=== PATIENT | female | born 1995 | race African-American/Black ===

== ENCOUNTER 2020-02-28 08:04 | Outpatient (CLI) | payer BC, SELFPAY ==
[2020-02-28 08:21] LABS: Hematocrit 39.7 % (37.0-47.0); Hemoglobin 12.7 g/dL (12.0-15.0)
== END 2020-02-28 08:05 | disposition home or self-care (01) ==
LOC: ANHLAB 08:06
PROVIDERS: Visit Provider Student in an Organized Health Care Education/Training Program
DX: R87.619 Unspecified abnormal cytological findings in specimens from cervix uteri (principal)
CPT/HCPCS: 36415; 85014; 85018

== ENCOUNTER 2020-02-29 00:01 | Outpatient (CLI) | payer BC, SELFPAY ==
[2020-02-29 19:45] LABS: SARS-CoV-2 RNA PCR Negative
== END 2020-02-29 00:02 | disposition home or self-care (01) ==
LOC: ANHCOVIDDT 00:02
PROVIDERS: Visit Provider Student in an Organized Health Care Education/Training Program
DX: Z01.818 Encounter for other preprocedural examination (principal); Z11.59 Encounter for screening for other viral diseases
CPT/HCPCS: 87635; C9803; U0003

== ENCOUNTER 2020-03-02 03:44 | Day surgery (SDC) | payer BC, SELFPAY ==
[2020-02-17 15:13] VITALS: BMI 46.7
--- NOTE | 2020-03-02 07:38 | PM.IMHP ---
H&P: HPI History of Present Illness Chief complaint: Abnormal PAP Narrative: Ana Maria Panda is a 24 year old female who presents for LEEP for CINDY 2 on cervical biopsy. Pt initially was found to have LSIL pap with +HPV. She underwent colposcopy and biopsy results returned CIN2. Pt denies tobacco use. Attempt was made to perform in office procedure but patient was unable to relax enough to tolerate the exam due to anxiety. Review of Systems Cardiovascular: Cardiovascular: Denies chest pain, Denies leg edema, Denies palpitations, Denies dyspnea and Denies dyspnea on exertion Respiratory: Respiratory: Denies cough, Denies dyspnea and Denies dyspnea on exertion Gastrointestinal: Gastrointestinal: Denies abdominal pain, Denies constipation, Denies diarrhea, Denies nausea and Denies vomiting Genitourinary: Genitourinary: Denies hematuria, Denies urinary frequency, Denies dysuria, Denies pelvic pain, Denies urinary incontinence and Denies vaginal discharge Neurologic: Reports system reviewed and no additional complaints, except as documented Psychiatric: Psychiatric: Reports no additional psychiatric complaints Endocrine: Endocrine: Denies palpitations [facility] Family History Family History (Updated 06/16/17 @ 08:31 by DOCTOR UNKNOWN) Other Diabetes mellitus Hypertension Social History Social History Smoking status: Never smoker Alcohol intake: current Gender identity (if verbalized by the patient): Female Meds Home Medications and Allergies Home Medications Medication Instructions Recorded Confirmed Type bupropion HCl 100 mg PO BID 02/17/20 02/17/20 History drospirenone-ethinyl estradiol 1 tablet PO QPM 02/17/20 02/17/20 History [Myra] duloxetine 60 mg PO DAILY 02/17/20 02/17/20 History Allergies Allergy/AdvReac Type Severity Reaction Status Date / Time No Known Allergies Allergy Verified 02/17/20 15:13 Exam Const: General: no acute distress Eyes: EOM: EOMs intact bilaterally Neck: Neck: supple Thyroid: thyroid normal Chest: Breast/axilla inspection: normal inspection of the breasts Breast/axilla palpation: normal palpation of the breasts, normal palpation of the axillae and no axillary lymphadenopathy Resp: Effort & Inspection: normal respiratory effort Auscultation: clear to auscultation bilaterally Cardio: Rate: regular rate Rhythm: regular rhythm GI: Inspection: non-distended GI Palp: Yes Soft to palpation, No Tenderness to palpation present (GI) and No Guarding due to palpation present (GI) Auscultation: normal bowel sounds : General: No bladder normal to palpation External Female Exam: normal external appearance Speculum Exam - Vagina: normal vaginal discharge and No vaginal bleeding Speculum Exam - Cervix: nontender Bimanual exam- vagina & uterus: No bladder normal to palpation and No Cervical tenderness present OB/external & speculum: No vaginal bleeding Skin: General skin exam: normal color and no rashes or lesions noted Neuro: Cognition (Neuro): normal cognition Speech: normal speech Extrem: General: normal to inspection and no edema Psych: Mental Status: mental status grossly normal Affect: normal affect Assessment and Plan Assessment and plan (1) CINDY II (cervical intraepithelial neoplasia II): Code(s): N87.1 - Moderate cervical dysplasia Status: Acute Assessment and Plan: initial pap with LSIL +HPV colposcopy and cervical bx returned CINDY 2 plan for excisional biopsy via LEEP
[2020-03-02] MEDS: LACTATED RINGERS 1,000 ML 30 ML IV CONT (10:30)
[2020-03-02 10:35] VITALS: BP 128/90; PULSE 107; RESP 24; TEMP 36.6; O2SAT 100
--- NOTE | 2020-03-02 11:23 | P.PNAN_ITS ---
Anes - Initial Pre Proc Eval Procedure: Operation Date: 03/02/20 12:00 Proposed Procedures p Loop Electrical Excision Procedure - Musa Snyder MD Date/Time: 03/02/20 11:23 Surgeon: Musa Snyder MD Pre Op Diagnosis: Abnormal PAP Patient Data Age: 24 Gender: F Height: 5 ft 6 in Weight: 129.1 kg Last Vital Signs Temp 36.6 C 03/02/20 10:35 Pulse 107 H 03/02/20 10:35 Resp 24 H 03/02/20 10:35 BP 128/90 03/02/20 10:35 Pulse Ox 100 03/02/20 10:35 Allergies Allergy/AdvReac Type Severity Reaction Status Date / Time No Known Allergies Allergy Verified 02/17/20 15:13 Home Medications Medication Instructions Recorded Confirmed Type drospirenone-ethinyl estradiol 1 tablet PO QPM 02/17/20 03/02/20 History [Myra] duloxetine 60 mg PO DAILY 02/17/20 03/02/20 History bupropion HCl 150 mg PO BID 03/02/20 03/02/20 History quetiapine 25 mg PO HS 03/02/20 03/02/20 History trazodone 50 mg PO BID 03/02/20 03/02/20 History Patient hx anesthesia problems: none Family hx anesthesia problems: none [facility] Past Medical History Medical History (Updated 03/02/20 @ 11:24 by Damaso Eller MD) Anxiety Depression Family History Family History Other Diabetes mellitus Hypertension Social History Social History Smoking status: Never smoker Alcohol intake: current Gender identity (if verbalized by the patient): Female Anes - Eval Final PreProcedure Day of Procedure 03/02/20 11:23 Patient weight: morbidly obese Heart: regular rate and rhythm Lungs: clear to auscultation Airway: Mallampati scale class II Neurological: alert and oriented Last oral intake: >/= 8 hours ASA classification: III Emergent: no Anesthetic plan: proceed Anesthesia type and monitoring: general GIVS and standard monitoring Informed Consent: The patient's anesthetic plan and its attendant risks and benefits were discussed with the patient/family/POA. Questions were solicited and answers provided to the satisfaction of the patient/family/POA.
[2020-03-02] MEDS: KETOROLAC 30 MG/ML VIAL (*BKC) IV PUSH (12:15)
[2020-03-02] MEDS: LIDO 1%/EPINEPHRINE 1:100,000 20 ML VIAL 10 ML INFILTRATE (12:26)
--- NOTE | 2020-03-02 12:29 | PM.PROC ---
Procedure Note - Detailed Date of procedure: 03/02/20 Pre-op diagnosis: Abnormal PAP Procedure performed: LEEP endocervical curettage Description of procedure: After adequate anesthesia was established, the patient was placed in dorsal lithotomy position in yellow fin sitrrups. Insulated speculum was placed to visualize the cervix. Paracervical block was performed with 1% lidocaine with epinepherine. Lugols solution was then applied with good definition of the transformation zone. A 25 mm loop was used to excise the transformation zone. A total of one passes were made. The cervical specimen came out in two pieces, one anterior cervix and one posterior cervix. A single stitch was placed a 12 o'clock on the cervical specimen. An endocervical curettage was performed. Hemostasis was obtained with ball cautery. Power settings cut 35 abbasi, coagulation 35 abbasi. Patient tolerated the procedure well. All sponge and instrument counts were correct. The patient was transferred to PACU without complications. Anesthesia: GLMA Surgeon: Musa Snyder MD Estimated blood loss (mL): 10 Drains: No Packing: No Pathology: yes (endocervical curettage, cervical biopsy) Complications: No immediate complications Condition: stable Disposition: PACU
[2020-03-02 12:32] VITALS: BP 135/81; PULSE 98; RESP 18; O2SAT 99
[2020-03-02 13:00] VITALS: BP 133/88; PULSE 92; RESP 16
[2020-03-02 13:20] VITALS: BP 135/74; PULSE 92; RESP 16
== END 2020-03-02 13:30 | disposition home or self-care (01) ==
PROVIDERS: Visit Provider Student in an Organized Health Care Education/Training Program
PROC: 0UBC7ZZ Excision of Cervix, Via Natural or Artificial Opening (ICD-10-PCS; CPT 57522; principal; 2020-03-02 12:00)
DX: D06.7 Carcinoma in situ of other parts of cervix (principal); F41.8 Other specified anxiety disorders; E66.01 Morbid (severe) obesity due to excess calories; Z68.42 Body mass index [BMI] 45.0-49.9, adult
CPT/HCPCS: 57522; 88305; A9270; J1885; J2250; J2704; J3010; J7120

== ENCOUNTER 2021-12-21 13:15 | Emergency (ER) | payer OTHER, SELFPAY ==
--- NOTE | ~2021-12-21 | XR_ITS ---
EXAMINATION: XR foot LT min 3V DATE: 12/21/2021 13:35 INDICATION: Great toe injury and pain. TECHNIQUE: 4 views of left foot were obtained. COMPARISON: None. FINDINGS: There is an avulsion fracture of medial base of first proximal phalanx with 3 mm distractio n. Joint spaces are normal. There is an enthesophyte at plantar aspect of calcaneal tuberosity. IMPRESSION: 1. Avulsion fracture of medial base of first proximal phalanx. Reviewed, dictated and finalized at location B.
--- NOTE | 2021-12-21 13:17 | ED.LOWEXIN ---
HPI - Extremity Injury (Lower) General Chief Complaint: Extremity Injury, Lower Stated Complaint: left foot injury Time Seen by Provider: 12/21/21 13:17 Source: patient and RN notes reviewed History of Present Illness HPI Narrative: Patient is a 26-year-old female who presents the urgent care with complaints of left foot pain, swelling and bruising. Patient states that a couple weeks ago she slipped in the shower and initially was having some resolution of the pain and swelling. Patient states that over the last few days it is became more swollen and had increase in pain with weightbearing activities. Patient states that she has been keeping it elevated with ice and taking Tylenol. No other acute complaints. No acute distress noted. Patient aware of the plan of care. Some parts of this dictation were generated by voice recognition software and may contain typographical and/or grammatical inaccuracies. Related Data Home Medications Medication Instructions Recorded Confirmed drospirenone-ethinyl estradiol 1 tablet PO QPM 02/17/20 03/02/20 [Myra] bupropion HCl 150 mg PO BID 03/02/20 03/02/20 quetiapine 25 mg PO HS 03/02/20 03/02/20 clonidine HCl 0.1 mg PO BID PRN 12/21/21 12/21/21 venlafaxine 75 mg PO HS 12/21/21 12/21/21 Allergies Allergy/AdvReac Type Severity Reaction Status Date / Time No Known Allergies Allergy Verified 02/17/20 15:13 Review of Systems Review of Systems: CONSTITUTIONAL: Denies fever, chills, or sweats. EYES: Denies visual changes, redness, or discharge. ENT: Denies rhinorrhea, congestion, sore throat, or otalgia. CARDIOVASCULAR: Denies chest pain, palpitations, or edema. RESPIRATORY: Denies cough or dyspnea. GASTROINTESTINAL: Denies abdominal pain, nausea, vomiting, or diarrhea. GENITOURINARY: Denies dysuria or hematuria. SKIN: Denies rash or itching. MUSCULOSKELETAL: Reports of left foot pain and swelling NEUROLOGIC: Denies headache, numbness, or weakness. All other systems reviewed are negative, except as documented in HPI. REPLACED BY [facility] Past Medical History Medical History (Updated 12/21/21 @ 14:01 by RAFAEL Jewell) Anxiety Depression Family History Family History Other Diabetes mellitus Hypertension Social History Social History Smoking status: Never smoker Alcohol intake: current Gender identity (if verbalized by the patient): Female Comments At the time of my signature, I reviewed and agree with the nursing past medical, surgical, social, and family history. There is no relevant family history pertinent to the patient complaint. Exam Narrative: GENERAL: This is a well-nourished, well-developed patient, in no apparent distress. HEAD: normocephalic, atraumatic. EYES: PERRL. Sclera clear/white. Vision is grossly intact. EARS: External ears normal NOSE: External nose normal with no obvious nasal discharge, nares without redness, no rhinorrhea. THROAT: Mucous membranes moist NECK: Neck supple SKIN: warm, intact with no suspicious lesions or rash, good texture and turgor. NEURO: awake, alert, and oriented to person, place and time. There were no obvious focal neurologic abnormalities. EXTREMITIES: Moderate ecchymosis and edema noted to the left foot extending from the proximal first phalanx to the mid dorsal aspect. Positive strong left pedal pulse with capillary refill less than 2 seconds. Course Course Level of Care: Express Care Visit Vital Signs Vital signs: Vital Signs Temperature 98 F 12/21/21 13:23 Pulse Rate 114 H 12/21/21 13:23 Respiratory Rate 16 12/21/21 13:23 Blood Pressure 157/60 H 12/21/21 13:23 Pulse Oximetry 100 12/21/21 13:23 Temperature 98 F 12/21/21 13:29 Pulse Rate 114 H 12/21/21 13:29 Respiratory Rate 16 12/21/21 13:29 Blood Pressure 157/60 H 12/21/21 13:29 Pulse Oximetry 100 12/21/21 13:29
[2021-12-21 13:23] VITALS: BP 157/60; PULSE 114; RESP 16; TEMP 36.6; O2SAT 100
[2021-12-21 13:29] VITALS: BP 157/60; PULSE 114; RESP 16; TEMP 36.6; O2SAT 100
--- NOTE | 2021-12-21 13:36 | PC.NURSE ---
PT DECLINED ICE FOR COMFORT
== END 2021-12-21 14:08 | disposition home or self-care (01) ==
PROVIDERS: Emergency Provider Nurse Practitioner Family
DX: S92.412A Displaced fracture of proximal phalanx of left great toe, initial encounter for closed fracture (principal); W18.2XXA Fall in (into) shower or empty bathtub, initial encounter; F41.9 Anxiety disorder, unspecified; F32.A Depression, unspecified
CPT/HCPCS: 73630; 99214; G0463

== ENCOUNTER 2023-01-26 11:28 | Emergency (ER) | payer OTHER, SELFPAY ==
[2023-01-26 11:40] VITALS: BP 112/74; PULSE 95; RESP 14; TEMP 36.6; O2SAT 98
--- NOTE | 2023-01-26 12:05 | ED.GENADULT ---
HPI - General Adult General Chief complaint: Skin/Abscess/Foreign Body Stated complaint: Rash Source: patient Mode of arrival: ambulatory Limitations: no limitations History of Present Illness HPI narrative: patient presents for evaluation of a rash to her neck and bilateral upper extremities. She he is 13 days ago she developed a painful rash to the right side of neck. She had a scheduled upper endoscopy 9 days ago. The anesthesiologist would not move for the procedure as they thought was shingles. She was given prescription for Valtrex which she started. She then developed pruritic rash to bilateral upper extremities. She thought this was an allergic reaction to the Valtrex. Consequently she stop taking the medication and reports a slight improvement in the rash since that time. the rash to her neck is painful but not pruritic. The rash to her upper extremities is pruritic but not painful. She applied some calamine and topical benadryl. She does not know whether she was exposed to poison [place]/oak. Related Data Home Medications Medication Instructions Recorded Confirmed drospirenone 3 mg-ethinyl 1 tablet PO QPM 02/17/20 01/26/23 estradiol 0.03 mg tablet (Myra) venlafaxine 75 mg capsule,extended 150 mg PO HS 12/21/21 01/26/23 release 24 hr Concerta 01/26/23 trazodone 01/26/23 Allergies Allergy/AdvReac Type Severity Reaction Status Date / Time No Known Allergies Allergy Verified 01/26/23 11:31 Review of Systems Review of Systems: CONSTITUTIONAL: Denies fever, chills, or sweats. EYES: Denies visual changes, redness, or discharge. ENT: Denies rhinorrhea, congestion, sore throat, or otalgia. CARDIOVASCULAR: Denies chest pain, palpitations, or edema. RESPIRATORY: Denies cough or dyspnea. GASTROINTESTINAL: Denies abdominal pain, nausea, vomiting, or diarrhea. GENITOURINARY: Denies dysuria or hematuria. SKIN: reports painful rash to the neck. Reports pruritic rash to bilateral upper extremities MUSCULOSKELETAL: Denies back pain, joint pain, or myalgia. NEUROLOGIC: Denies headache, numbness, dizziness, or weakness. PSYCHIATRIC: Denies anxiety or depression. [facility] Past Medical History Medical History Anxiety Depression GERD (gastroesophageal reflux disease) Headache IBS (irritable bowel syndrome) Surgical History Surgical History History of tonsillectomy Family History Family History Other Diabetes mellitus Hypertension Social History Social History Smoking status: Never smoker Alcohol intake: current Substance use: never Living arrangements: alone Gender identity (if verbalized by the patient): Female Exam Narrative: GENERAL: Well-appearing, well-nourished, and in no acute distress. HEAD: Normocephalic, atraumatic. EYES: PERRLA and EOMI. ENT: Nares clear, no rhinorrhea or epistaxis. Mucous membranes moist. Oropharynx without tonsillar hypertrophy exudate or other lesions. Bilateral TMs pearly francisco nonbulging NECK: Supple. No adenopathy or masses. No carotid bruits or JVD CHEST: Clear to auscultation. No respiratory distress. No wheezes rales or rhonchi HEART: Regular rate and rhythm. No murmur heard. Normal peripheral pulses. ABDOMEN: Soft, nontender, nondistended, normal active bowel sounds. EXTREMITIES: Normal range of motion. No edema. SKIN: There is a slightly raised vesicular rash to the posterior aspect of the right side of the neck. there are clusters of vesicles and pinpoint areas of what appear to be puncture mckee noted to BUE NEURO: No focal deficits. Alert and oriented x3. PSYCH: Normal mood and affect. Course Course Emergency Course: This is a 27-year-old female who presented for evaluation of p
== END 2023-01-26 12:08 | disposition home or self-care (01) ==
PROVIDERS: Emergency Provider Nurse Practitioner; PCP Family Medicine
DX: L30.9 Dermatitis, unspecified (principal); F41.9 Anxiety disorder, unspecified; F32.A Depression, unspecified; K21.9 Gastro-esophageal reflux disease without esophagitis
CPT/HCPCS: 87255; 99213; G0463